=== PATIENT | female | born 1995 | race Two or more races ===

== ENCOUNTER 2017-06-06 03:05 | Emergency (ER) | payer OTHER ==
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
[2017-06-06 03:15] VITALS: BP 101/77; PULSE 85; RESP 18; TEMP 97.9; O2SAT 99
[2017-06-06] MEDS ORDERED: ONDANSETRON DISINTEGRATING 4 MG TAB PO ONE (04:38)
[2017-06-06] MEDS ORDERED: cefTRIAXone 250 MG VIAL IM ONE (04:38)
[2017-06-06] MEDS ORDERED: AZITHROMYCIN 250 MG TAB PO ONE (04:38)
[2017-06-06] MEDS ORDERED: CEFTRIAXONE IM 350 MG/ML SYRINGE IM ONE (05:00)
== END 2017-06-06 07:51 | disposition home or self-care (01) ==
LOC: EEVIPCON 03:05 → SANE 07:51
DX: T76.21XA Adult sexual abuse, suspected, initial encounter (principal)
CPT/HCPCS: J0696